=== PATIENT | male | born 1995 | race Caucasian/White ===

== ENCOUNTER 2018-11-07 23:08 | Emergency (ER) | payer SELFPAY ==
[~2018-11-07] VITALS: Ht 157.5 cm; Wt 81.6 kg
[2018-11-07 23:15] VITALS: BP 121/76
--- NOTE | 2018-11-07 23:18 | NUR ---
TO LOBBY A/W BED AMBULATORY
--- NOTE | 2018-11-08 00:40 | NUR ---
PT AMBULATED TO ER BED 05
[2018-11-08] MEDS ORDERED: LORazepam 1 MG TAB PO ONE (00:50)
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
[2018-11-08 01:50] VITALS: BP 121/76
--- NOTE | 2018-11-08 01:50 | NUR ---
Patient discharged with v/s stable. Written and verbal after care instructions given and explained. Patient verbalized understanding. Ambulatory with steady gait. All questions addressed prior to discharge. Advised to follow up with PMD.
== END 2018-11-08 01:50 | disposition home or self-care (01) ==
LOC: MED 23:08
DX: F41.9 Anxiety disorder, unspecified (principal)
CPT/HCPCS: 99284